=== PATIENT | female | born 1980 | race Caucasian/White ===

== ENCOUNTER → 2018-08-09 | Outpatient (CLI) | payer BC | LOC: COL.RAD 13:59 | DX: E04.9 Nontoxic goiter, unspecified (principal); R09.89 Other specified symptoms and signs involving the circulatory and respiratory systems ==

== ENCOUNTER → 2021-05-29 | Outpatient (CLI) | payer SELFPAY | LOC: MC.RAD 09:26 | DX: Z12.31 Encounter for screening mammogram for malignant neoplasm of breast (principal) ==

== ENCOUNTER → 2022-03-25 | Outpatient (CLI) | payer OTHER | LOC: COL.LAB 13:53 | DX: Z13.29 Encounter for screening for other suspected endocrine disorder (principal); E55.9 Vitamin D deficiency, unspecified; M35.00 Sjogren syndrome, unspecified ==

== ENCOUNTER → 2023-08-20 | Outpatient (CLI) | payer OTHER | LOC: MC.RAD 13:27 | DX: Z12.31 Encounter for screening mammogram for malignant neoplasm of breast (principal) ==